=== PATIENT | female | born 1985 ===

== ENCOUNTER → 2021-04-27 | Emergency (ER) | payer SELFPAY ==
[~2021-04-27] VITALS: Ht 162.6 cm; Wt 68.2 kg
[~2021-04-27] MED LIST: IV NORMAL SALINE 1,000ML 1,000 ML IV ONE; KETOROLAC 30 MG/ML VIAL. IVP ONE; ONDA4TAB12 PO; ONDANSETRON PF 4 MG/2 ML VIAL. IVP ONE
[2021-04-27 21:17] LABS: BASO % 0 % (0-3); EOS # 0.1 x10^3/uL (0.0-0.7); EOS % 1 % (0-3); HEMATOCRIT 42.2 % (36.0-47.0); HEMOGLOBIN 13.9 g/dL (12.0-15.5); LYMPH % 9 % (24-48); MEAN CORPUSCULAR HEMOGLOBIN 31 pg (25-35); MEAN CORPUSCULAR HGB CONC 33 g/dL (31-37); MEAN CORPUSCULAR VOLUME 93 fL (79-100); MONO # 0.8 x10^3/uL (0.0-1.1); MONO % 7 % (0-9); NEUT # 9.6 x10^3uL (1.8-7.7); NEUT % 83 % (31-73); PLATELET COUNT 350 x10^3/uL (140-400); RED BLOOD COUNT 4.56 x10^6/uL (3.50-5.40); RED CELL DISTRIBUTION WIDTH 14.5 % (11.5-14.5); WHITE BLOOD COUNT 11.5 x10^3/uL (4.0-11.0)
[2021-04-27 21:26] LABS: CALCIUM 8.6 mg/dL (8.5-10.1); CREATININE 0.8 mg/dL (0.6-1.0); GFR 80.7; POTASSIUM 3.9 mmol/L (3.5-5.1)
[2021-04-27 21:28] LABS: BACTERIA,URINE 0 /HPF (0-FEW); BILIRUBIN,URINE NEG (NEG); CLARITY,URINE CLEAR; COLOR,URINE YELLOW; GLUCOSE,URINE NEG (NEG); NITRITE,URINE NEG (NEG); RBC,URINE 0 /HPF (0-2); SQUAMOUS EPITHELIAL CELL,UR MANY /LPF; UROBILINOGEN,URINE 0.2 mg/dL (0.2 mg/dL); WBC,URINE OCC /HPF (0-4)
[2021-04-27 21:32] LABS: INFLUENZA A PATIENT NEGATIVE (NEGATIVE); INFLUENZA B PATIENT NEGATIVE (NEGATIVE)
[2021-04-27 21:32] LABS: ALBUMIN 3.8 g/dL (3.4-5.0); ALBUMIN/GLOBULIN RATIO 1.2 (1.0-1.7); TOTAL BILIRUBIN 0.5 mg/dL (0.2-1.0); TOTAL PROTEIN 7.1 g/dL (6.4-8.2)
--- NOTE | 2021-04-27 22:20 | PHYS DOC ---
Past History Past Surgical History: Other Additional Past Surgical Histo: WISDOM TEETH, D&C (KO GOETZ APRN) Alcohol Use: Occasionally (KO GOETZ APRN) Adult General Chief Complaint Chief Complaint: NAUSEA/VOMITING/DIARRHEA HPI HPI Patient is a 36-year-old female who presents to the emergency department ama rning diarrhea spells off and on for the past 5 days. Vomited once today at 5 PM noticing clear vomitus without blood. Denies seeing blood in her diarrhea stool. Reports having one diarrhea spell today. Denies abdominal discomfort or pain. Patient denies vaginal discharge or STI concerns. Denies increased urinary frequency, hematuria, or other dysuria, denies recent fever or chills. Denies chest pains, shortness of breath, syncopal or near syncopal episodes. Patient denies other physical complaints or physical concerns. Patient does report being on day 8 of a 10-day Ceftin regimen for a sinus infection started by her primary care provider. Patient reports she has received the COVID-19 virus vaccination series with booster. (KO GOETZ APRN) Review of Systems Review of Systems 14 body systems of review of systems have been reviewed. See HPI for pertinent positives and negative responses, otherwise all other systems are negative, nonpertinent or noncontributory. Constitutional: Negative except as outlined in HPI above. Skin: Negative except as outlined in HPI above. Eyes: Negative except as outlined in HPI above. HENT: Negative except as outlined in HPI above. Respiratory: Negative except as outlined in HPI above. Cardiovascular: Negative except as outlined in HPI above. GI: Negative except as outlined in HPI above. : Negative except as outlined in HPI above. Musculoskeletal: Negative except as outlined in HPI above. Integument: Negative except as outlined in HPI above. Neurologic: Negative except as outlined in HPI above. Endocrine: Negative except as outlined in HPI above. Lymphatic: Negative except as outlined in HPI above. Psychiatric: Negative except as outlined in HPI above. (KO GOETZ APRN) Current Medications Current Medications Current Medications Medications (Trade) Dose Ordered Sig/Roberto Start Time Stop Time Status Last Admin Dose Admin Ketorolac Tromethamine (Toradol 30mg Vial) 30 mg 1X ONCE 04/27/21 20:30 04/27/21 20:31 DC 04/27/21 20:46 30 MG Ondansetron HCl (Zofran) 4 mg 1X ONCE 04/27/21 20:30 04/27/21 20:31 DC 04/27/21 20:46 4 MG Sodium Chloride 1,000 ml @ 1,000 mls/hr 1X ONCE 04/27/21 20:30 04/27/21 21:29 DC 04/27/21 20:46 1,000 MLS/HR (KO GOETZ APRN) Allergies Allergies Allergies Coded Allergies Type Severity Reaction Last Updated Verified No Known Drug Allergies 04/27/21 No (KO GOETZ APRN) Physical Exam Physical Exam Constitutional: Well developed, well nourished, no acute distress, non-toxic appearance. 36-year-old female in no apparent distress. HENT: Normocephalic, atraumatic. Oropharynx moist, pink, no deep tissue infectious process appreciated, no lymphadenopathy of the head or neck appreciated, bilateral TMs intact and within normal limits. Eyes: Conjunctiva normal, no discharge. Neck: Normal range of motion, no stridor. Cardiovascular: No cyanosis appreciated, distal cap refill less than 2 seconds. Lungs & Thorax: Patient is in no respiratory distress, no audible adventitious lung sounds appreciated. Abdomen: Nontender, no abnormalities noted. Normal bowel sounds all 4 quadrants. Skin: Warm, dry, no erythema, no rash. Back: No tenderness, no deformities. Extremities: No tenderness, no cyanosis, no clubbing, ROM intact, no edema. Neurologic: Alert and oriented X 3, normal motor function, normal sensory function, no focal deficits noted. Psychologic: Affect normal, judgement normal, mood normal. (KO GOETZ APRN) Current Patient Data Vital Signs Vital Signs Date Time Temp Pulse Resp B/P (MAP) Pulse Ox O2 Delivery O2 Flow Rate FiO2 04/27/21 20:06 97.8 63 18 155/63 (93) 98 Room Air Lab Results Laboratory Tests Test 04/27/21 20:40 04/27/21 20:45 04/27/21 20:50 04/27/21 20:57 Urine Collection Type Clean catch Urine Color Yellow Urine Clarity Clear Urine pH 6.0 Urine Specific [place] 1.025 Urine Protein Neg Urine Glucose (UA) Neg mg/dL Urine Ketones (Stick) Neg mg/dL Urine Blood Neg Urine Nitrite Neg Urine Bilirubin Neg Urine Urobilinogen Dipstick 0.2 mg/dL Urine Leukocyte Esterase Neg Urine RBC 0 /HPF Urine WBC Occ /HPF Urine Squamous Epithelial Cells Many /LPF Urine Bacteria 0 /HPF Urine Mucus Slight /LPF White Blood Count 11.5 x10^3/uL Red Blood Count 4.56 x10^6/uL Hemoglobin 13.9 g/dL Hematocrit 42.2 % Mean Corpuscular Volume 93 fL Mean Corpuscular Hemoglobin 31 pg Mean Corpuscular Hemoglobin Concent 33 g/dL Red Cell Distribution Width 14.5 % Platelet Count 350 x10^3/uL Neutrophils (%) (Auto) 83 % Lymphocytes (%) (Auto) 9 % Monocytes (%) (Auto) 7 % Eosinophils (%) (Auto) 1 % Basophils (%) (Auto) 0 % Neutrophils # (Auto) 9.6 x10^3uL Lymphocytes # (Auto) 1.0 x10^3/uL Monocytes # (Auto) 0.8 x10^3/uL Eosinophils # (Auto) 0.1 x10^3/uL Basophils # (Auto) 0.0 x10^3/uL Sodium Level 139 mmol/L Potassium Level 3.9 mmol/L Chloride Level 104 mmol/L Carbon Dioxide Level 27 mmol/L Anion Gap 8 Blood Urea Nitrogen 13 mg/dL Creatinine 0.8 mg/dL Estimated GFR (Cockcroft-Gault) 80.7 BUN/Creatinine Ratio 16 Glucose Level 94 mg/dL Calcium Level 8.6 mg/dL Total Bilirubin 0.5 mg/dL Aspartate Amino Transf (AST/SGOT) 17 U/L Alanine Aminotransferase (ALT/SGPT) 24 U/L Alkaline Phosphatase 51 U/L Total Protein 7.1 g/dL Albumin 3.8 g/dL Albumin/Globulin Ratio 1.2 Lipase 52 U/L Influenza Type A (Rapid) Negative Influenza Type B (Rapid) Negative SARS-CoV-2 Antigen (Rapid) Negative Bedside Urine HCG, Qualitative hcg negative Current Medications Medications (Trade) Dose Ordered Sig/Roberto Route PRN Reason Start Time Stop Time Status Last Admin Dose Admin Sodium Chloride 1,000 ml @ 1,000 mls/hr 1X ONCE IV 04/27/21 20:30 04/27/21 21:29 DC 04/27/21 20:46 Ondansetron HCl (Zofran) 4 mg 1X ONCE IVP 04/27/21 20:30 04/27/21 20:31 DC 04/27/21 20:46 Ketorolac Tromethamine (Toradol 30mg Vial) 30 mg 1X ONCE IVP 04/27/21 20:30 04/27/21 20:31 DC 04/27/21 20:46 Laboratory Tests Test 04/27/21 20:40 04/27/21 20:45 04/27/21 20:50 04/27/21 20:57 Urine Collection Type Clean catch Urine Color Yellow Urine Clarity Clear Urine pH 6.0 Urine Specific [place] 1.025 Urine Protein Neg (NEG-TRACE) Urine Glucose (UA) Neg mg/dL (NEG) Urine Ketones (Stick) Neg mg/dL (NEG) Urine Blood Neg (NEG) Urine Nitrite Neg (NEG) Urine Bilirubin Neg (NEG) Urine Urobilinogen Dipstick 0.2 mg/dL (0.2 mg/dL) Urine Leukocyte Esterase Neg (NEG) Urine RBC 0 /HPF (0-2) Urine WBC Occ /HPF (0-4) Urine Squamous Epithelial Cells Many /LPF Urine Bacteria 0 /HPF (0-FEW) Urine Mucus Slight /LPF White Blood Count 11.5 x10^3/uL (4.0-11.0) H Red Blood Count 4.56 x10^6/uL (3.50-5.40) Hemoglobin 13.9 g/dL (12.0-15.5) Hematocrit 42.2 % (36.0-47.0) Mean Corpuscular Volume 93 fL (79-100) Mean Corpuscular Hemoglobin 31 pg (25-35) Mean Corpuscular Hemoglobin Concent 33 g/dL (31-37) Red Cell Distribution Width 14.5 % (11.5-14.5) Platelet Count 350 x10^3/uL (140-400) Neutrophils (%) (Auto) 83 % (31-73) H Lymphocytes (%) (Auto) 9 % (24-48) L Monocytes (%) (Auto) 7 % (0-9) Eosinophils (%) (Auto) 1 % (0-3) Basophils (%) (Auto) 0 % (0-3) Neutrophils # (Auto) 9.6 x10^3uL (1.8-7.7) H Lymphocytes # (Auto) 1.0 x10^3/uL (1.0-4.8) Monocytes # (Auto) 0.8 x10^3/uL (0.0-1.1) Eosinophils # (Auto) 0.1 x10^3/uL (0.0-0.7) Basophils # (Auto) 0.0 x10^3/uL (0.0-0.2) Sodium Level 139 mmol/L (136-145) Potassium Level 3.9 mmol/L (3.5-5.1) Chloride Level 104 mmol/L (98-107) Carbon Dioxide Level 27 mmol/L (21-32) Anion Gap 8 (6-14) Blood Urea Nitrogen 13 mg/dL (7-20) Creatinine 0.8 mg/dL (0.6-1.0) Estimated GFR (Cockcroft-Gault) 80.7 BUN/Creatinine Ratio 16 (6-20) Glucose Level 94 mg/dL (70-99) Calcium Level 8.6 mg/dL (8.5-10.1) Total Bilirubin 0.5 mg/dL (0.2-1.0) Aspartate Amino Transferase (AST) 17 U/L (15-37) Alanine Aminotransferase (ALT) 24 U/L (14-59) Alkaline Phosphatase 51 U/L (46-116) Total Protein 7.1 g/dL (6.4-8.2) Albumin 3.8 g/dL (3.4-5.0) Albumin/Globulin Ratio 1.2 (1.0-1.7) Lipase 52 U/L (73-393) L Influenza Type A (Rapid) Negative (NEGATIVE) Influenza Type B (Rapid) Negative (NEGATIVE) SARS-CoV-2 Antigen (Rapid) Negative (NEGATIVE) POC Urine HCG, Qualitative hcg negative (Negative) (KO GOETZ APRN) EKG EKG [] (KO GOETZ APRN) Radiology/Procedures Radiology/Procedures [] (KO GOETZ APRN) Heart Score C/O Chest Pain: No Risk Factors: Risk Factors: DM, Current or recent (<one month) smoker, HTN, HLP, family history of CAD, obesity. Risk Scores: Risk Factors: DM, Current or recent (<one month) smoker, HTN, HLP, family history of CAD, obesity. (KO GOETZ APRN) Course & Med Decision Making Course & Med Decision Making Pertinent Labs and Imaging studies reviewed. (See chart for details) 36-year-old female, vital signs reviewed, presents emergency department concerning nausea vomiting diarrhea. Physical examination is unremarkable, will order 1 L normal saline, Zofran for nausea, Toradol, rapid Covid/flu testing, CBC, CMP, lipase, urinalysis assay with test. Patient's CBC CMP and lipase unremarkable, the patient's urine is not infected, she is not per urine test, rapid Covid and flu testing are negative. Upon reevaluation of the patient, patient reports the IV fluids and nausea medication helped, she no longer has any nausea, continues to deny abdominal discomfort, had no vomiting or diarrhea episodes while in the emergency department. Discussed with patient symptoms suspicious for oral antibiotic regimen versus viral component. Recommended [id number] probiotic, staying well-hydrated, patient's electrolytes were nonconcerning, discussed with patient continue taking antibiotic regimen to complete, follow-up with primary care soon for ongoing symptoms, will prescribe as needed Zofran regimen for returning nausea symptoms, return to ER precautions and concerns were reviewed, patient gave verbal understanding of and is amenable to ED discharge planning. Discussed with the patient all findings and diagnostic testing as well as the need to follow-up with their primary care provider for further evaluation and treatment or return to the ED if any new or worsening symptoms. Strict return precautions were also discussed at length, the patient voiced understanding and agreement with the discharge planning. The patient was nontoxic in appearance, in no apparent distress, and hemodynamically stable at the time of disposition. (KO GOETZ APRN) Course & Med Decision Making Did not see or evaluate patient. Did not discuss patient with SYSTEM ADMIN. Agree with SYSTEM ADMIN's work-up and disposition per note. (VENUS RUBIO MD) Dragon Disclaimer Dragon Disclaimer This electronic medical record was generated, in whole or in part, using a voice recognition dictation system. (KO GOETZ APRN) Departure Departure: Impression: Primary Impression: Nausea vomiting and diarrhea Disposition: HOME / SELF CARE / HOMELESS Condition: GOOD Patient Instructions: Diaphragm, Nausea and Vomiting Additional Instructions: You were seen in the emergency department today for nausea, vomiting, and diarrhea. Lab work was drawn today that did not show any concerning findings of infection or electrolyte abnormalities. As we discussed, I will prescribe you Zofran orally dissolving tablets for any returning nausea. Please keep well- hydrated, as we discussed, your diarrhea may be related to the strong antibiotic you have been taking for your sinus infection, please continue to take this antibiotic until completed, you may consider purchasing an [id number] probiotic as this may help with your diarrhea symptoms. Please follow-up with your primary care physician for ongoing symptoms. Return to the emergency department for worsening symptoms or other concerns. Thank you for visiting our Emergency Department. It was a pleasure taking care of you today in the emergency department and we appreciate you trusting us with your care. If any additional problems come up don't hesitate to return to visit us. Please follow up with your primary care provider so they can plan additional care if needed and know about the problem that you had. If symptoms worsen come back to the Emergency Department. Any concerning symptoms that start such as chest pain, shortness of air, weakness or numbness on one side of the body, running high fevers or any other concerning symptoms return to the ER. Scripts Ondansetron (ONDANSETRON ODT) 4 Mg Tab.rapdis 1 TAB PO PRN Q6-8HRS for nausea, #16 TAB 0 Refills Prov: KO GOETZ APRN 04/27/21 KO GOETZ APRN Apr 27, 2021 22:20 VENUS RUBIO MD Apr 28, 2021 19:14
[2021-04-27 22:22] VITALS: BP 117/43
== END | disposition home or self-care (01) ==
LOC: ER 19:59
DX: R19.7 Diarrhea, unspecified (principal); R11.2 Nausea with vomiting, unspecified; Z20.822 Contact with and (suspected) exposure to COVID-19
CPT/HCPCS: 36415; 80053; 81001; 81025; 83690; 85025; 87428; 96361; 96374; 96375; 99284; J1885; J2405; J7030